=== PATIENT | male | born 1995 | race Caucasian/White ===

== ENCOUNTER 2022-11-07 18:00 | Emergency (ER) | payer OTHER ==
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
[2022-11-07 18:40] VITALS: TEMP 98.3
[2022-11-07 21:42] VITALS: BP 110/47; PULSE 76; RESP 16
== END 2022-11-07 21:51 | disposition home or self-care (01) ==
LOC: EC 18:00
DX: S51.012A Laceration without foreign body of left elbow, initial encounter (principal); W25.XXXA Contact with sharp glass, initial encounter
CPT/HCPCS: 10060; 99283

== ENCOUNTER 2022-11-21 10:20 | Emergency (ER) | payer OTHER ==
[2022-11-21 10:39] VITALS: RESP 18; TEMP 98.6
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
--- NOTE | 2022-11-21 11:07 | XR ---
EXAMINATION TYPE: XR ankle complete LT DATE OF EXAM: 11/21/2022 11:01 AM INDICATION: Patient age:Male; 26 years old; Reason for study: Pain after injury; COMPARISON: None TECHNIQUE: The left ankle is imaged in frontal, lateral and oblique projections. FINDINGS: There is no evidence of acute osseous pathology. The joint spaces are well-preserved without evidenc e of subluxation or dislocation. Kager's fat pad is intact. Mild soft tissue swelling around the ankl e. No radiopaque foreign bodies are identified. IMPRESSION: 1. No evidence of acute fracture. 2. Subcutaneous swelling around the ankle likely secondary to underlying soft tissue injury.
[2022-11-21 11:56] VITALS: BP 128/78; PULSE 62
== END 2022-11-21 11:50 | disposition home or self-care (01) ==
LOC: EC 10:20
DX: S93.402A Sprain of unspecified ligament of left ankle, initial encounter (principal); F17.200 Nicotine dependence, unspecified, uncomplicated; F11.90 Opioid use, unspecified, uncomplicated; W07.XXXA Fall from chair, initial encounter
CPT/HCPCS: 99283